=== PATIENT | female | born 1975 | race Caucasian/White ===

== ENCOUNTER 2019-01-15 07:36 | Day surgery (SDC) ==
[2019-01-15] MEDS ORDERED: DIPRIVAN 1% ONE (07:42)
[2019-01-15] MEDS ORDERED: XYLOCAINE-MPF 2% ONE (07:49)
[2019-01-15] MEDS ORDERED: QUELICIN (DOSE) ONE (07:49)
[2019-01-15] MEDS ORDERED: FENTANYL ONE (07:55)
[2019-01-15] MEDS ORDERED: REGLAN ONE (08:04)
[2019-01-15] MEDS ORDERED: LR 1,000 ML ONE (08:04)
[2019-01-15] MEDS ORDERED: KEFZOL 1 GM/D5W 1 GM/50 ML IVPB ONE (08:04)
[2019-01-15] MEDS ORDERED: PEPCID ONE (08:04)
[2019-01-15] MEDS ORDERED: LUBRIFRESH PM OPH OINTMENT ONE (08:26)
[2019-01-15] MEDS ORDERED: XYLOCAINE 1%/EPI 1:100,000 ONE (08:47)
[2019-01-15] MEDS ORDERED: ZOFRAN ONE (10:12)
[2019-01-15] MEDS ORDERED: DECADRON ONE (10:12)
[2019-01-15] MEDS: DILAUDID ONE ×4 (10:52→11:03)
[2019-01-15] MEDS ORDERED: MORPHINE IV PRN (12:30)
[2019-01-15] MEDS ORDERED: PHENERGAN IV PRN (12:31)
[2019-01-15] MEDS ORDERED: MOTRIN PO PRN (12:31)
[2019-01-15] MEDS: NORCO-7.5 PO PRN ×2 (12:39→22:57)
[2019-01-15] MEDS ORDERED: SODIUM CHLORIDE 0.9% INJ PRN (12:45)
--- NOTE | 2019-01-15 20:14 | OPERATIVE NOTE ---
PROCEDURE DATE: 01/15/2019 PREOPERATIVE DIAGNOSIS: Right thyroid nodule. POSTOPERATIVE DIAGNOSIS: Right thyroid nodule. PRINCIPAL PROCEDURE: Right thyroid lobectomy. SURGEON: Daylin Chowdhury MD. STITCH WHEELER: Dr. Marcelino Thomas. ANESTHESIA: General in addition to local anesthetic. ESTIMATED BLOOD LOSS: 30 mL. DRAINS: TLS drain right neck. INDICATIONS: Silvia Walker is a 43-year-old white female who has a large right thyroid nodule which encompassed her entire right thyroid lobe. It was noticeable and caused pressure symptoms. Excision was recommended. FINDINGS: She had a large right thyroid nodule encompassing her entire right thyroid lobe. We excised the right thyroid lobe and isthmus. The left thyroid lobe was of normal size and had no worrisome nodule and we left it in place. We stayed close to the thyroid along our dissection, we preserved the parathyroid tissue on the right and the right recurrent laryngeal nerve. DESCRIPTION OF PROCEDURE: The patient was brought to the operating room, placed supine, received general anesthesia, was intubated. A sheet was fold between her shoulders to extend her neck. Her anterior neck was prepped and draped in a sterile field. She was placed in reverse Trendelenburg position. She received Ancef prophylactically. We marked an 8 cm in length curvilinear incision anterior neck centered at the trachea. The local anesthetic was placed and incision was made with a 15 blade scalpel and was carried down through full-thickness skin, subcutaneous tissue to the platysma muscle. We then used cautery to transect the platysma muscle and create our subplatysmal plane superiorly and inferiorly. We used a Gelpi for self-retaining retraction and hand-held retractors. We identified the midline and we incised the fascia between the strap muscles along the midline using cautery and then we took the strap muscles off the right thyroid lobe which was enlarged. We mobilized the right thyroid with blunt finger dissection up into our wound. We isolated the superior pole vessels and took them using ligature instrument. We stayed close to the thyroid as we dissected the parathyroid tissue down. We used the LigaSure to control the middle thyroid vessels and the inferior thyroid vessels right at the thyroid gland. We swept these vessels off the thyroid as we mobilized the thyroid off the anterior aspect of the trachea. At the ligament of Puentes we were very careful to not injure the right recurrent laryngeal nerve. We stayed right on the thyroid as we lifted it up off the trachea. We came across the isthmus right at its insertion into the left thyroid lobe again using the LigaSure. The specimen was sent to the pathologist for permanent section. We took time to thoroughly irrigate the right side of the neck be sure all bleeding was controlled either with clips or with cautery. We took the strap muscles off the left thyroid lobe and inspected it, it was not enlarged. There was no worrisome nodule and we decided to leave it in place. We did not do a thorough dissection of the left side of the neck. We placed a TLS drain in the right side of the neck. It was brought out through the lateral aspect of our incision. I closed the strap muscles in the midline with interrupted 3-0 Vicryl stitches and then I closed the platysma muscle with 3-0 Vicryl stitches. The skin was closed with 4-0 Monocryl subcuticular stitch. Steri-Strips were applied followed by dry dressing. It must be noted that Dr. Marcelino Thomas was present throughout the case. His presence was necessary for retraction of the thyroid and also with help dissection and taking vessels with the ligature as needed. cc: Daylin Chowdhury MD
[2019-01-15] MEDS: PERIDEX MT SCH (20:22)
[2019-01-15] MEDS ORDERED: HALL'S COUGH LOZENGE MT ONE (22:51)
[2019-01-16] MEDS: NORCO-7.5 PO PRN ×2 (04:53→10:55)
[2019-01-16] MEDS: PERIDEX MT SCH (09:25)
[2019-01-16 13:02] VITALS: BP 94/44
--- NOTE | 2019-01-16 20:25 | GENERAL SURGERY PROGRESS NOTE ---
DATE: 01/16/2019 SUBJECTIVE: Doing well. No fevers. No tachycardia. No numbness. No tingling. No difficulty swallowing. No difficulty breathing. No fevers. Her SONI drain serosanguineous minimal output. Incision flap. Minimal bruising. No new labs. ASSESSMENT AND PLAN: A 43-year-old female status post right thyroidectomy. She is doing well. We will plan for her to go home today. I removed her drain, applied a dressing. I have given her a prescription for Synthroid 50 mcg. She will see Dr. Chowdhury later this week. cc: MD Daylin Jones MD
== END 2019-01-16 14:43 | disposition home or self-care (01) ==
LOC: 4N 07:36 → OPS 07:36
PROVIDERS: ATTEND Surgery
PROC: GE.THYR (2019-01-15 09:05)
CPT/HCPCS: 81025; 88307; 88313; 94760; 94761; 94799; A9270; J0330; J0690; J1100; J1170; J2270; J2405; J2550; J3010; J7120